=== PATIENT | male | born 1995 ===

== ENCOUNTER 2023-04-05 03:34 | Emergency (ER) | payer OTHER, SELFPAY ==
--- NOTE | ~2023-04-05 | CT_ITS ---
EXAMINATION: CT ABDOMEN AND PELVIS WITH CONTRAST CLINICAL INFORMATION: Periumbilical pain COMPARISON: None available. TECHNIQUE: Multidetector volumetric images were obtained from the superior aspect of the liver through the pubic symphysis following administration 85 mL of Omnipaque 350 intravenous contrast. Sagittal and coronal reformatted images were obtained on the technologist's workstation. Oral contrast: No This CT examination was performed using dose optimization techniques as appropriate, variously including the following: *Automated exposure control *Adjustment of mA and/or kV according to patient size (this includes techniques or standardized protocols for targeted exams where dose is matched to indication/reason for exam; i.e. extremities or head) *Use of iterative reconstruction technique DLP: 401 mGy-cm FINDINGS: Examination is limited by a marked paucity of intra-abdominal fat and a lack of oral bowel opacification. LUNG BASES: The visualized lung bases are unremarkable. LIVER, GALLBLADDER, AND BILIARY TREE: The liver is normal in size, shape, and attenuation. No focal hepatic lesion or biliary ductal dilatation is present. The gallbladder is unremarkable with no evidence of radiopaque gallstones, gallbladder wall thickening, or obvious pericholecystic inflammatory changes. PANCREAS: Unremarkable. SPLEEN: Unremarkable. ADRENAL GLANDS: Unremarkable. KIDNEYS AND URETERS: The kidneys are normal in size, shape, and attenuation. No hydronephrosis, hydroureter, or calculi seen. No perinephric stranding. BLADDER: Unremarkable. GASTROINTESTINAL TRACT: The small and large bowel are unremarkable. The appendix is air-filled.. ABDOMINAL WALL: No significant hernia is appreciated. LYMPH NODES: Normal. VASCULAR: Unremarkable. PELVIC VISCERA: Unremarkable. OSSEOUS STRUCTURES: Unremarkable. CT/CT abdomen pelvis w IV con IMPRESSION: No acute findings in the abdomen or pelvis, allowing for the marked limitations of a paucity of intra-abdominal adipose tissue, and unopacified bowel. Fleischner guidelines were followed.
[2023-04-05 03:49] VITALS: BP 129/62; PULSE 61; RESP 18; TEMP 37; O2SAT 100; BMI 20.6
[2023-04-05 03:54] VITALS: BP 129/62; PULSE 61; RESP 18; TEMP 37; O2SAT 100
[2023-04-05 04:25] LABS: MANUAL DIFF FLAG NO
[2023-04-05 04:26] LABS: Basophils Percent Auto 0.3 % (0-2); Eosinophils Absolute Auto 0.2 X10*3/uL (0.0-0.4); Eosinophils Percent Auto 1.3 % (0-4); Hematocrit 41.2 % (42.0-52.0); Hemoglobin 15.2 g/dl (14.0-18.0); Imm Gran Abs Auto 0.04 X10*3/uL (0.00-0.03); Imm Gran Pct Auto 0.3 % (0.0-0.4); Lymphocytes Absolute Auto 2.1 X10*3/uL (1.2-4.9); Lymphocytes Percent Auto 17.6 % (20-40); Mean Corpuscular HGB Conc 36.9 g/dl (31.0-36.0); Mean Corpuscular Hemoglobin 30.5 pg (27.0-33.0); Mean Corpuscular Volume 82.6 fL (80.0-98.0); Mean Platelet Volume 8.4 fL (9.4-12.4); Monocytes Absolute Auto 0.8 X10*3/uL (0.1-1.2); Monocytes Percent Auto 6.6 % (2-11); Neutrophils Absolute Auto 8.8 x10*3/uL (2.0-8.3); Neutrophils Percent Auto 73.9 % (45-73); Platelet Count 211 X10*3/uL (160-400); Red Blood Count 4.99 X10*6/uL (4.60-5.80); Red Cell Distribution Width 14.1 % (11.0-16.0); White Blood Count 11.9 X10*3/uL (4.8-10.8)
[2023-04-05 04:43] LABS: Alanine Aminotransferase 16 U/L (0-40); Albumin Level 4.3 g/dL (3.5-5.0); Alkaline Phosphatase 48 U/L (39-117); Anion Gap 12 (12-20); Aspartate Amino Transferase 16 U/L (5-37); Bilirubin Total 0.8 mg/dL (0.0-1.0); Blood Urea Nitrogen 14 mg/dL (9-16); Calcium 9.5 mg/dL (8.4-10.2); Carbon Dioxide 28 mmol/L (22-29); Chloride 105 mmol/L (96-108); Creatinine Clr Calc Pharmacy 111.4; Estimated Glomerular Filt Rate > 60; Glucose Random 91 mg/dL (60-115); Potassium 3.9 mmol/L (3.3-5.1); Sodium 141 mmol/L (135-145); Total Protein 7.1 g/dL (6.5-8.0)
[2023-04-05 05:01] LABS: Appearance Urine Cloudy; Color Urine Yellow; Glucose Urine UA Negative (Negative); Leukocyte Esterase Urine Moderate (2+) (Negative); Nitrite Urine Negative (Negative); Specific Gravity - Urine 1.025 (1.005-1.025); UMIC TRIGGER UACC YES; Urine Blood Trace (Negative); Urine Ketones Trace mg/dL (Negative); Urine Protein Trace mg/dL (Neg-Trace)
[2023-04-05 05:08] LABS: Bacteria Urine None Seen (None Seen); Hyaline Casts Urine 0-2 /LPF (0-2); Squamous Epithelial Cell Urine 0-2 /HPF (0-2); UACC Culture Trigger YES; WBC Urine >50 /HPF (0-5)
[2023-04-05] MEDS: iohexoL 350 MG/ML 100 ML INFUS..BTL 85 ML IV (05:40)
[2023-04-05] MEDS: Ketorolac Tromethamine 30 MG/ML VIAL IVPUSH (05:43)
[2023-04-05 06:00] VITALS: BP 112/69; PULSE 61; RESP 16; TEMP 36.9; O2SAT 98
--- NOTE | 2023-04-05 06:36 | ED.ABDPAIN ---
HPI - Abdominal Pain General Chief Complaint: Abdominal Pain Stated Complaint: ABD PAIN FROM [facility] PER EMS Time Seen by Provider: 04/05/23 06:32 Source: patient, RN notes reviewed and old records reviewed Mode of arrival: ambulatory History of Present Illness HPI narrative: 27-year-old male with no significant past medical history presenting to the ED complaining of suprapubic/groin pain x 3 days with associated nausea, constipation, and decreased p.o. intake. Reports no BM x3 days, is still passing gas. Also reports dark urine & dysuria. Admits to concern for STI with new sexual partners. Denies discharge or lesions. Denies vomiting, hematuria, flank pain, fever/chills, testicular pain. MD elicited complaint: abdominal pain Pertinent past history: constipation Related Data Previous Rx's Medication Instructions Recorded cefuroxime axetil 250 mg tablet 250 mg PO BID 6 days #12 tabs 04/05/23 doxycycline hyclate 100 mg tablet 100 mg PO BID 7 days #13 tabs 04/05/23 Allergies Allergy/AdvReac Type Severity Reaction Status Date / Time No Known Allergies Allergy Verified 04/05/23 04:00 Review of Systems Review of Systems Constitutional: No Fever, No Chills ENT/Mouth: No Ear Pain, No Nasal Congestion, No Rhinorrhea, No Swallowing Difficulty Cardiovascular: No Chest Pain, No SOB Respiratory: No Cough, No Sputum, No Wheezing Gastrointestinal: + Nausea, No Vomiting, No Diarrhea, + Constipation, + Abdominal pain Genitourinary: +Dysuria, No Urinary Frequency, No Hematuria, No Urinary Incontinence/retention, No Urgency, No Flank Pain, +groin pain Musculoskeletal: No joint pain, No Myalgias, No Joint Swelling Skin: No Skin Lesions, No rash Neuro: No Weakness, No Numbness, No Paresthesias Yes all other systems are reviewed and are negative Constitutional: Reports as per HPI [facility] Past Medical History Attestation statement: The following information was validated with the patient. Source: old records reviewed Onset Date is defined in the Problem List Problems that require an onset date and time if occurred within 24 hrs of arrival to the ED Aortic Dissection and Rupture; Neurologic impairment; Cardiopulmonary Arrest; Endotracheal Intubation; Insertion or Replacement of Mechanical Circulatory Assist Device Social History Social History Smoked in Last 30 Days: Yes Use of substances other than those prescribed or required for medical reasons: No Advance Directives: No Physical Exam ED Vital Signs: Vital Signs - 24 hr 04/05/23 03:49 04/05/23 03:54 04/05/23 06:00 Temperature 98.6 F 98.6 F 98.5 F Pulse Rate 61 61 61 Respiratory Rate 18 18 16 Blood Pressure 129/62 129/62 112/69 Pulse Oximetry 100 100 98 Oxygen Delivery Method Room Air Room Air Room Air BMI result Body Mass Index 20.6 Const General: cooperative, healthy appearing and no acute distress Orientation/consciousness: patient oriented x3 Limitations: no limitations HENMT Head: Yes normal to inspection and Yes atraumatic Ears: hearing grossly normal bilaterally General nose exam: Normal external nose present Face and sinus: Yes normal facial exam Eyes General: appearance normal, both eyes and all related structures EOM: EOMs intact bilaterally Neck Neck: Yes normal visual inspection and Yes no meningeal signs Resp Effort & Inspection: normal respiratory effort and no respiratory distress Auscultation: clear to auscultation bilaterally Cardio Rate: regular rate Heart sounds: S1 normal heart sound present and S2 normal heart sound present GI Inspection: Yes normal to inspection Palpation (GI): Soft to palpation, Tenderness to palpation present (GI) suprapubicly; with no rebound tenderness, no guarding and not rigid General: Yes no CVA tenderness Penis: normal penis, circumcised and other (+bilateral inguinal pain, no appreciable hernia) Scrotum: scrotum normal Testes: Testes normal, no testicular swelling and no testicular tenderness Back/Spine/Pelvis Back: no CVA tenderness Skin Rashes: no rashes Wounds: no wounds Neuro General: patient oriented x3, tone normal and no meningeal signs Cranial nerves: Yes CN's II-XII intact bilaterally Gait exam (Neuro): Normal gait present Extrem General: Yes normal to inspection Course Course Course Narrative: -0702--labs reassuring. UA infected CT abdomen pelvis w IV con IMPRESSION: No acute findings in the abdomen or pelvis, allowing for the marked limitations of a paucity of intra-abdominal adipose tissue, and unopacified bowel. Fleischner guidelines were followed. >0758--scrotal ultrasound ordered however patient currently refusing would like to be discharged back to [facility]. Treated with IM Rocephin and p.o. doxycycline for empiric STI coverage and UTI. Patient is ambulating in the ED, appears comfortable, tolerating p.o. Results discussed with patient including worrisome signs and symptoms and strict return precautions, and when to return to the emergency department. They verbalized understanding and feel safe for discharge at this time. Medical Decision Making Medical Decision Making [facility] Narrative: 27-year-old male with no significant past medical history presenting to the ED complaining of suprapubic/groin pain x 3 days with associated nausea, constipation, and decreased p.o. intake. Reports no BM x3 days, dark urine & dysuria. Admits to concern for STI with new sexual partners. On exam vital signs stable, NAD, sleeping comfortably, abdomen soft with suprapubic/bilateral inguinal/groin tenderness, testicle/scrotum WNL, no appreciable hernia, no rebound or guarding. Concern for constipation vs UTI vs STI vs ? Hernia. Lower suspicion for testicular torsion/orchitis/epididymitis at this time. Lower suspicion for appendicitis/diverticulitis or renal stones/pyelo Plan: Labs, UA, STI testing, CT AP, IVF, pain control. Patient agreeable to empiric STI treatment in the ED today Please refer to course for remaining clinical decision making, interpretation of labs/imaging results, and discussions with consultants and/or family members. Differential Diagnosis Differential Diagnoses: The differential diagnosis associated with the presentation includes As above Admission/Observation Consideration of admission/observation: Escalation of care including admission/observation considered Lab Data MDM Lab Attestation statement: I reviewed the patient's lab results. 04/05/23 04:19 04/05/23 04:19 Labs: Lab Results 04/05/23 04/05/23 04/05/23 Range/Units 04:19 04:56 10:10 WBC 11.9 H (4.8-10.8) X10*3/uL RBC 4.99 (4.60-5.80) X10*6/uL Hgb 15.2 (14.0-18.0) g/dl Hct 41.2 L (42.0-52.0) % MCV 82.6 (80.0-98.0) fL MCH 30.5 (27.0-33.0) pg MCHC 36.9 H (31.0-36.0) g/dl RDW 14.1 (11.0-16.0) % Plt Count 211 (160-400) X10*3/uL MPV 8.4 L (9.4-12.4) fL Immature Gran % (Auto) 0.3 (0.0-0.4) % Neut % (Auto) 73.9 H (45-73) % Lymph % (Auto) 17.6 L (20-40) % [place] % (Auto) 6.6 (2-11) % Eos % (Auto) 1.3 (0-4) % Baso % (Auto) 0.3 (0-2) % Lymph # (Auto) 2.1 (1.2-4.9) X10*3/uL [place] # (Auto) 0.8 (0.1-1.2) X10*3/uL Eos # (Auto) 0.2 (0.0-0.4) X10*3/uL Baso # (Auto) 0.0 (0.0-0.2) X10*3/uL Abs Immat Gran (auto) 0.04 H (0.00-0.03) X10*3/uL Absolute Neuts (auto) 8.8 H (2.0-8.3) x10*3/uL Absolute Nucleated RBC 0.000 (0.0-0.012) X10*3/uL Nucleated RBC % (auto) 0.0 (0.0-0.2) /100WBC Sodium 141 (135-145) mmol/L Potassium 3.9 (3.3-5.1) mmol/L Chloride 105 (96-108) mmol/L Carbon Dioxide 28 (22-29) mmol/L Anion Gap 12 (12-20) BUN 14 (9-16) mg/dL Creatinine 1.08 (0.5-1.4) mg/dL Estim Creat Clear Calc 111.4 Estimated GFR > 60 Random Glucose 91 (60-115) mg/dL Calcium 9.5 (8.4-10.2) mg/dL Magnesium 2.0 (1.6-2.6) mg/dL Total Bilirubin 0.8 (0.0-1.0) mg/dL AST 16 (5-37) U/L ALT 16 (0-40) U/L Alkaline Phosphatase 48 (39-117) U/L Total Protein 7.1 (6.5-8.0) g/dL Albumin 4.3 (3.5-5.0) g/dL Lipase 12 (8-78) U/L Urine Color Yellow Urine Appearance Cloudy Urine pH 6.0 (5.0-9.0) Ur Specific [place] 1.025 (1.005-1.025) Urine Protein Trace (Neg-Trace) mg/dL Urine Glucose (UA) Negative (Negative) mg/dL Urine Ketones Trace (Negative) mg/dL Urine Blood Trace H (Negative) Urine Nitrite Negative (Negative) Ur Leukocyte Esterase Moderate (2+) H (Negative) Urine RBC 6-10 H (0-2) /HPF Urine WBC >50 H (0-5) /HPF Ur Squamous Epith Cells 0-2 (0-2) /HPF Urine Bacteria None Seen (None Seen) Hyaline Casts 0-2 (0-2) /LPF Chlam trachomat DNA PCR NOT DETECTED (Not Detect.) N.gonorrhoeae DNA (PCR) DETECTED A (Not Detect.) Radiology Impression Discussion of test interpretation with radiology: I have reviewed the radiologist's reading. External Record Review External record reviewed: Inpatient record, Office record, Outpatient record, Prior outpatient labs, Prior outpatient radiology, Primary care record and Outside ED record Tests considered The following testing was considered but not selected: As above Prescription Management I considered prescription management with: Pain Medication and Antibiotic Social Determinants Patient?s care significantly limited by Social Determinants of Health including: Alcoholism and drug addiction in family and Problems related to primary support group Medications Administered Discontinued Medications Generic Name Dose Route Start Last Admin Trade Name Davis PRN Reason Stop Dose Admin Ceftriaxone Sodium 500 mg/ 0 mg 04/05/23 07:36 04/05/23 08:17 Lidocaine HCl 1 ml IM 04/05/23 07:37 1 kit ONCE ONE Administration Doxycycline Monohydrate 100 mg 04/05/23 07:36 04/05/23 08:17 Doxycycline Monohydrate 100 Mg Capsule PO 04/05/23 07:37 100 mg ONCE ONE Administration Sodium Chloride 1,000 mls @ 999 mls/hr 04/05/23 06:45 04/05/23 07:38 Ns IV 04/05/23 07:45 Infused .Q1H1M ROBIN Infusion Iohexol 85 ml 04/05/23 05:39 04/05/23 05:40 Iohexol 350 Mg/Ml 100 Ml Infus..Btl IV 04/05/23 05:40 85 ml ONCE ONE Administration Ketorolac Tromethamine 30 mg 04/05/23 05:17 04/05/23 05:43 Ketorolac Tromethamine 30 Mg/Ml Vial IVPUSH 04/05/23 05:18 30 mg ONCE ONE Administration Ondansetron HCl 4 mg 04/05/23 09:52 04/05/23 10:05 Ondansetron Odt 4 Mg Tab.Rapdis TRANSLINGU 04/05/23 09:53 4 mg ONCE ONE Administration Discharge Plan Discharge Clinical Impression: Abdominal pain, Acute UTI, STI (sexually transmitted infection) Patient Disposition: Xfer [facility] Transfer Details: BACK TO [facility] WITH [facility] Instructions: Urinary Tract Infection in Men (ED), Abdominal Pain (ED) Additional Instructions: Your blood work is reassuring. Your CT scan does not show any acute findings You do have a urinary tract infection, Ceftin as an antibiotic please take as prescribed We also tested you for gonorrhea and chlamydia, we are treating you empirically, continue prescribed medications, follow-up with [facility] for further STI testing Please refrain from any sexual contact until you know the results of her cultures We will contact you with positive results only If symptoms persist or worsen constant worsening abdominal pain, fever chills, persistent nausea/vomiting return to the ED Prescriptions: New cefuroxime axetil 250 mg tablet 250 mg PO BID 6 Days Qty: 12 0RF doxycycline hyclate 100 mg tablet 100 mg PO BID 7 Days Qty: 13 0RF Referrals: [facility] [Provider Group] Interventions: Acute Care Transfer Worksheet (ED) Last Done: 04/05/23 10:47 Discharge Date/Time: 04/05/23 10:49
--- NOTE | 2023-04-05 06:42 | PC.NURSE ---
Pt [place] from [facility] on a section 21. Pt reporting periumbiclical pain 9/10 since Monday. Pt endorsing dark urine, pain with urination, and recent unprotected sex. he also notes that he hasnt had a Bm since at least hasnt been eating or drinking. IV line place in right forearm. PT medicated as per MAR. Denies SI/HI at this time. 1:1 sitter at bedside due to section 21. Plan of care ongoing
[2023-04-05] MEDS: 0.9 % Sodium Chloride 1,000 ML 999 ML IV (06:48)
[2023-04-05 06:52] LABS: Lipase 12 U/L (8-78)
--- NOTE | 2023-04-05 07:37 | PC.NURSE ---
complaining of pain at IV site multiple times, appeared intact, fluids infusing. fluids stopped, patient removed own IV.
--- NOTE | 2023-04-05 07:47 | PC.NURSE ---
patient does not wish to wait for ultrasound, requesting to return to [facility]
[2023-04-05] MEDS: Doxycycline Monohydrate 100 MG CAPSULE PO (08:17)
[2023-04-05] MEDS: cefTRIAXone sodium 500 MG, Lidocaine HCl 1 % MPF 1 ML IM (08:17)
--- NOTE | 2023-04-05 09:45 | PC.NURSE ---
attempted to call [facility] to give update on patient for return to facility
[2023-04-05] MEDS: Ondansetron ODT 4 MG TAB.RAPDIS TRANSLINGU (10:05)
[2023-04-05 11:49] LABS: CT PCR NOT DETECTED (Not Detect.); NG PCR DETECTED (Not Detect.)
== END 2023-04-05 10:49 ==
PROVIDERS: Physician Assistant; Emergency Provider Emergency Medicine
DX: A54.09 Other gonococcal infection of lower genitourinary tract (principal); N39.0 Urinary tract infection, site not specified; R10.2 Pelvic and perineal pain
CPT/HCPCS: 0353U; 36415; 74177; 80053; 81001; 81003; 83690; 83735; 85025; 87086; 96361; 96372; 96374; 99285; J0696; J1885; Q9967